=== PATIENT | male | born 1955 | race Caucasian/White ===

== ENCOUNTER → 2022-05-11 | Day surgery (SDC) | payer MEDICARE, OTHER, BC ==
[~2022-05-11] MED LIST: Lactated Ringers 1,000 ML IV ONE; Lactated Ringers 800 ML IV ONE; Propofol 200 MG/20 ML SDV ONE; fentaNYL 100 MCG/2 ML SDV ONE
== END ==
LOC: MW.SDS 06:00
PROVIDERS: ATTEND Surgery
DX: Z12.11 Encounter for screening for malignant neoplasm of colon (principal); K57.30 Diverticulosis of large intestine without perforation or abscess without bleeding; K64.4 Residual hemorrhoidal skin tags; Z90.49 Acquired absence of other specified parts of digestive tract; Z98.890 Other specified postprocedural states; Z79.899 Other long term (current) drug therapy; Z79.82 Long term (current) use of aspirin
CPT/HCPCS: G0121; J2704; J3010; J7120; 00812

== ENCOUNTER 2023-10-13 07:46 | Day surgery (SDC) | payer MEDICARE, OTHER ==
[~2023-10-13 07:46] MED LIST changes: +Acetaminophen 1,000 MG in Premix Bag 1 BAG IV ONE; +Albuterol 0.083% 2.5 MG/3 ML Neb Soln NEB PRN; +HYDROmorphone 1 MG/ML Syringe IVPUSH PRN; -Lactated Ringers 1,000 ML IV ONE; -Lactated Ringers 800 ML IV ONE; +Metoclopramide 10 MG/2 ML SDV IVPUSH PRN; +Morphine 2 MG/ML SYRINGE IVPUSH PRN; +Naloxone 0.4 MG/ML SDV IVPUSH PRN; +Ondansetron 4 MG/2 ML SDV IVPUSH PRN; -Propofol 200 MG/20 ML SDV ONE; +ceFAZolin 1 GM in Sodium Chloride 0.9% 50 ML IV ONE; +ceFAZolin 2 GM in Sodium Chloride 0.9% 50 ML IV ONE; +droPERidol 5 MG/2 ML SDV IVPUSH PRN; -fentaNYL 100 MCG/2 ML SDV ONE; +fentaNYL 50 MCG/ML SDV IVPUSH PRN
[2023-10-13] MEDS ORDERED: Bupivacaine 0.5% 30 ML SDV ONE (07:49)
[2023-10-13] MEDS: Pregabalin 75 MG Cap PO ONE (07:51)
[2023-10-13] MEDS: Lactated Ringers 1,000 ML IV SCH (08:10)
== END 2023-10-13 15:05 | disposition home or self-care (01) ==
LOC: MW.SDS 07:46
PROVIDERS: ATTEND Surgery
DX: K40.20 Bilateral inguinal hernia, without obstruction or gangrene, not specified as recurrent (principal); K40.91 Unilateral inguinal hernia, without obstruction or gangrene, recurrent; H80.90 Unspecified otosclerosis, unspecified ear; H91.90 Unspecified hearing loss, unspecified ear; S76.919A Strain of unspecified muscles, fascia and tendons at thigh level, unspecified thigh, initial encounter; D17.9 Benign lipomatous neoplasm, unspecified; K40.90 Unilateral inguinal hernia, without obstruction or gangrene, not specified as recurrent; Z79.899 Other long term (current) drug therapy
CPT/HCPCS: 49505; 64488; A9270; J0665; J7120; 00830; C1781